=== PATIENT | female | born 1965 | race African-American/Black ===

== ENCOUNTER 2018-11-25 11:25 | Inpatient (IN) | payer MEDICAID, OTHER ==
[~2018-11-25] VITALS: Ht 170.2 cm; Wt 65.8 kg
[2018-11-25] MEDS ORDERED: LORAZEPAM 2MG/ML CPJ IV ONE ×2 (11:45→16:15)
[2018-11-25] MEDS ORDERED: CLONIDINE 0.2MG TABLET PO ONE (11:45)
[2018-11-25 12:09] LABS: BASOPHILS % 0.7 % (0.0-2.0); EOSINOPHILS % 0.1 % (0.0-5.0); HEMATOCRIT. 52.7 % (36.0-48.0); HEMOGLOBIN. 17.5 g/dL (12.0-16.0); LYMPHOCYTES % 29.5 % (20.0-50.0); MEAN CORPUSCULAR HEMOGLOBIN 25.1 pg (28.0-32.0); MEAN CORPUSCULAR VOLUME 75.9 fL (81.0-99.0); MEAN PLATELET VOLUME 9.6 fl (7.4-10.4); NEUTROPHILS % 55.7 % (40.0-76.0); PLATELET 237 x1000/uL (130-400); RED BLOOD CELL COUNT 6.95 mill/uL (4.2-5.4); RED CELL DISTRIBUTION WIDTH 15.6 % (11.6-14.6)
[2018-11-25 12:16] LABS: CHLORIDE 96 mEq/L (98-107)
[2018-11-25] MEDS ORDERED: ASPIRIN 81MG TABLET PO ONE (12:45)
[2018-11-25] MEDS ORDERED: HYDRALAZINE 20MG/ML VIAL IV ONE ×2 (12:45→14:00)
[2018-11-25] MEDS ORDERED: ONDANSETRON HCL 4MG/2ML INJ IV ONE (12:45)
[2018-11-25] MEDS ORDERED: ONDANSETRON HCL 4MG/2ML INJ IV PRN (14:30)
[2018-11-25] MEDS ORDERED: MAGNESIUM/ALUMINUM HYDROXIDE/SIMETHICONE 30ML UDC PO PRN (14:30)
[2018-11-25] MEDS ORDERED: GUAIFENESIN 200MG/10ML SUGAR FREE UDC PO PRN (14:30)
[2018-11-25] MEDS ORDERED: ACETAMINOPHEN 650MG SUPP PR PRN (14:30)
[2018-11-25] MEDS ORDERED: DEXTROSE 50% WATER 50ML SYRINGE IV PRN (14:30)
[2018-11-25] MEDS ORDERED: ACETAMINOPHEN 650MG/20.3ML UDC GT PRN (14:30)
[2018-11-25] MEDS ORDERED: MORPHINE SULFATE 4 MG/ML CPJ (NOT FOR IM USE) IV ONE (14:30)
[2018-11-25] MEDS ORDERED: IPRATROPIUM/ALBUTEROL 0.5-3(2.5)MG/3ML NEB INH PRN (14:30)
[2018-11-25] MEDS ORDERED: DOCUSATE SODIUM 100MG CAPSULE PO PRN (14:30)
[2018-11-25] MEDS ORDERED: CLONIDINE 0.1MG TABLET PO PRN (14:30)
[2018-11-25] MEDS ORDERED: IOHEXOL-350 100 ML BOTTLE ONE (15:25)
[2018-11-25] MEDS ORDERED: HYDRALAZINE 20MG/ML VIAL IV PRN (15:30)
[2018-11-25] MEDS ORDERED: CLONIDINE 0.2MG TABLET PO PRN (16:31)
[2018-11-25] MEDS ORDERED: HYDROCODONE/ACETAMINOPHEN 5/325MG TABLET PO PRN (17:00)
[2018-11-25] MEDS ORDERED: FUROSEMIDE 40MG/4ML VIAL IVP NR (18:45)
[2018-11-25] MEDS ORDERED: NA PHOS,M-B/NA PHOS,DI-BA ENEMA 118ML PR PRN (21:00)
[2018-11-25] MEDS: LORAZEPAM 1MG TABLET PO PRN (21:29)
[2018-11-25 23:30] VITALS: BP 168/112
[2018-11-26] MEDS: BENAZEPRIL 10MG TABLET PO SCH ×2 (00:50→08:18)
[2018-11-26] MEDS: AMLODIPINE 10MG TABLET PO SCH ×2 (00:50→08:18)
[2018-11-26] MEDS: DIPHENHYDRAMINE 50MG/ML VIAL IV PRN ×2 (00:52→20:44)
[2018-11-26] MEDS: BLOOD SUGAR DIAGNOSTIC STRIP TEST SCH ×5 (00:55→21:00)
[2018-11-26] MEDS: LORAZEPAM 1MG TABLET PO PRN (03:24)
[2018-11-26 04:00] VITALS: BP 121/79
[2018-11-26 04:20] LABS: CLARITY URINE CLEAR (CLEAR); COLOR URINE YELLOW (YELLOW); KETONES URINE NEGATIVE (NEGATIVE); LEUKOCYTE ESTERASE URINE NEGATIVE (NEGATIVE); NITRITE URINE NEGATIVE (NEGATIVE); OCCULT BLOOD URINE TRACE (NEGATIVE); PROTEIN URINE 1+ (NEGATIVE); SPECIFIC GRAVITY URINE 1.022 (1.005-1.030); UROBILINOGEN URINE 0.2 E.U./dL (0.2-1.0)
[2018-11-26] MEDS ORDERED: ALPR2TAB2 PO (04:27)
[2018-11-26 04:29] LABS: *BARBITURATES SCREEN URINE NEGATIVE (NEGATIVE); *BENZODIAZEPINES SCREEN URINE NEGATIVE (NEGATIVE); *COCAINE SCREEN URINE PRESUMTIVE POSITIVE (NEGATIVE)
[2018-11-26 04:30] LABS: *AMPHETAMINES SCREEN URINE PRESUMTIVE POSITIVE (NEGATIVE); CANNABINOID URINE SCREEN PRESUMTIVE POSITIVE (NEGATIVE); METHADONE URINE SCREEN NEGATIVE (NEGATIVE); OPIATES URINE SCREEN PRESUMTIVE POSITIVE (NEGATIVE); PHENCYCLIDINE URINE SCREEN NEGATIVE (NEGATIVE)
[2018-11-26] MEDS: SODIUM CHLORIDE 0.9% INJ 3ML FLUSH IVF SCH ×2 (05:29→14:00)
[2018-11-26 07:43] LABS: CHLORIDE 93 mEq/L (98-107)
[2018-11-26 07:51] LABS: CREATINE KINASE 947 IU/L (26-192); CREATINE KINASE MB FRACTION 4.3 ng/mL (0.5-3.6); LDL CHOLESTEROL 104 mg/dL (5-100)
[2018-11-26 07:52] LABS: HDL CHOLESTEROL 98 mg/dL (40-59)
[2018-11-26 08:00] VITALS: BP_SYST 107; BP_DIAS 70; BP_DIAS 71
[2018-11-26] MEDS: INSULIN LISPRO 100 UNITS/ML SUBCUT SCH ×5 (08:01→21:00)
[2018-11-26] MEDS ORDERED: ALPRAZOLAM 0.5 MG TABLET PO NR ×2 (08:08→09:00)
[2018-11-26] MEDS ORDERED: LORAZEPAM 1MG TABLET PO PRN (08:15)
[2018-11-26 08:29] LABS: BASOPHILS % 0.4 % (0.0-2.0); EOSINOPHILS % 0.3 % (0.0-5.0); HEMATOCRIT. 49.9 % (36.0-48.0); HEMOGLOBIN. 15.9 g/dL (12.0-16.0); LYMPHOCYTES % 37.9 % (20.0-50.0); MEAN CORPUSCULAR HEMOGLOBIN 24.5 pg (28.0-32.0); MEAN CORPUSCULAR VOLUME 76.7 fL (81.0-99.0); MONOCYTES % 13.5 % (2.0-8.0); NEUTROPHILS % 47.9 % (40.0-76.0); RED BLOOD CELL COUNT 6.51 mill/uL (4.2-5.4); RED CELL DISTRIBUTION WIDTH 15.3 % (11.6-14.6)
[2018-11-26] MEDS: ENOXAPARIN 40MG/0.4ML SYR SUBCUT SCH (08:40)
[2018-11-26] MEDS ORDERED: NICOTINE 21MG PATCH TD SCH (09:00)
[2018-11-26] MEDS: NICOTINE 14MG PATCH TD SCH (09:06)
[2018-11-26 12:00] VITALS: BP 138/75
[2018-11-26 14:11] LABS: PLATELET 159 x1000/uL (130-400)
[2018-11-26 14:13] LABS: PLATELET ESTIMATE NORMAL
[2018-11-26 16:00] VITALS: BP 111/63
[2018-11-26] MEDS ORDERED: POTASSIUM CHLORIDE 20MEQ/PACKET PO NR (16:45)
[2018-11-26] MEDS ORDERED: REGADENOSON 0.4 MG/5 ML IV NR (17:00)
[2018-11-26 17:52] LABS: T4 FREE 1.14 ng/dL (0.76-1.46)
[2018-11-26] MEDS: SODIUM CHLORIDE 0.45% 1,000 ML IV SCH (17:53)
[2018-11-26] MEDS: ALPRAZOLAM 0.5 MG TABLET PO PRN (20:08)
[2018-11-26] MEDS ORDERED: ALPRAZOLAM 0.5 MG TABLET PO SCH (21:00)
[2018-11-26] MEDS ORDERED: MEDICATION NOT ON FORMULARY EA (Alprazolam (Xanax) 2 MG) PO SCH (21:00)
[2018-11-27 00:19] VITALS: BP 97/61
[2018-11-27 04:00] VITALS: BP 95/63
[2018-11-27] MEDS: INSULIN LISPRO 100 UNITS/ML SUBCUT SCH ×4 (05:33→21:00)
[2018-11-27] MEDS: BLOOD SUGAR DIAGNOSTIC STRIP TEST SCH ×4 (05:33→21:50)
[2018-11-27 07:14] LABS: HEMATOCRIT. 42.8 % (36.0-48.0); HEMOGLOBIN. 13.6 g/dL (12.0-16.0); MEAN CORPUSCULAR HEMOGLOBIN 24.5 pg (28.0-32.0); MEAN CORPUSCULAR VOLUME 76.8 fL (81.0-99.0); MEAN PLATELET VOLUME 9.7 fl (7.4-10.4); PLATELET 113 x1000/uL (130-400); RED BLOOD CELL COUNT 5.57 mill/uL (4.2-5.4); RED CELL DISTRIBUTION WIDTH 15.1 % (11.6-14.6)
[2018-11-27 07:48] LABS: CHLORIDE 97 mEq/L (98-107)
[2018-11-27 08:00] VITALS: BP_SYST 107; BP_SYST 114; BP_DIAS 48; BP_DIAS 78
[2018-11-27 08:08] LABS: CREATINE KINASE 723 IU/L (26-192)
[2018-11-27 08:10] LABS: CREATINE KINASE MB FRACTION 2.5 ng/mL (0.5-3.6)
[2018-11-27] MEDS ORDERED: REGADENOSON 0.4 MG/5 ML IV ONE (08:47)
[2018-11-27] MEDS: ENOXAPARIN 40MG/0.4ML SYR SUBCUT SCH (10:11)
[2018-11-27] MEDS: AMLODIPINE 10MG TABLET PO SCH (10:12)
[2018-11-27] MEDS: NICOTINE 14MG PATCH TD SCH (10:19)
[2018-11-27] MEDS: SODIUM CHLORIDE 0.9% INJ 3ML FLUSH IVF SCH ×2 (10:20→15:24)
[2018-11-27] MEDS: SODIUM CHLORIDE 0.45% 1,000 ML IV SCH (10:20)
[2018-11-27 12:00] VITALS: BP 108/72
[2018-11-27 13:06] LABS: PLATELET ESTIMATE DECREASED
[2018-11-27] MEDS: ALPRAZOLAM 0.5 MG TABLET PO PRN (15:24)
[2018-11-27 16:00] VITALS: BP 107/76
[2018-11-27] MEDS: SODIUM CHLORIDE 0.9% 1,000 ML IV SCH (19:22)
[2018-11-27 20:00] VITALS: BP 128/86
[2018-11-27] MEDS: DIPHENHYDRAMINE 50MG/ML VIAL IV PRN (21:20)
[2018-11-28] VITALS: BP 110/61
[2018-11-28 04:00] VITALS: BP 133/87
[2018-11-28] MEDS: BLOOD SUGAR DIAGNOSTIC STRIP TEST SCH ×2 (05:30→12:40)
[2018-11-28] MEDS: SODIUM CHLORIDE 0.9% 1,000 ML IV SCH (05:39)
[2018-11-28 06:28] LABS: HEMATOCRIT. 45.1 % (36.0-48.0); HEMOGLOBIN. 14.2 g/dL (12.0-16.0); MEAN CORPUSCULAR HEMOGLOBIN 24.5 pg (28.0-32.0); MEAN CORPUSCULAR VOLUME 77.7 fL (81.0-99.0); MEAN PLATELET VOLUME 9.6 fl (7.4-10.4); PLATELET 110 x1000/uL (130-400); RED CELL DISTRIBUTION WIDTH 14.6 % (11.6-14.6)
[2018-11-28 07:50] LABS: PHOSPHORUS 2.8 mg/dL (2.5-4.9)
[2018-11-28 08:00] VITALS: BP 111/58
[2018-11-28] MEDS: INSULIN LISPRO 100 UNITS/ML SUBCUT SCH ×2 (08:10→13:10)
[2018-11-28 08:39] LABS: HEMATOCRIT. 41.6 % (36.0-48.0); HEMOGLOBIN. 13.2 g/dL (12.0-16.0); MEAN CORPUSCULAR HEMOGLOBIN 24.5 pg (28.0-32.0); MEAN CORPUSCULAR VOLUME 77.3 fL (81.0-99.0); MEAN PLATELET VOLUME 9.3 fl (7.4-10.4); PLATELET 101 x1000/uL (130-400); RED BLOOD CELL COUNT 5.39 mill/uL (4.2-5.4); RED CELL DISTRIBUTION WIDTH 14.7 % (11.6-14.6)
[2018-11-28 08:42] LABS: CHLORIDE 106 mEq/L (98-107)
[2018-11-28] MEDS: NICOTINE 14MG PATCH TD SCH (08:44)
[2018-11-28] MEDS: ENOXAPARIN 40MG/0.4ML SYR SUBCUT SCH (08:45)
[2018-11-28] MEDS: AMLODIPINE 10MG TABLET PO SCH (08:45)
[2018-11-28 11:03] LABS: PLATELET ESTIMATE DECREASED
[2018-11-28 12:00] VITALS: BP 126/86
[2018-11-28 12:19] LABS: PLATELET ESTIMATE SLIGHTLY DECREASED
[2018-11-28] MEDS ORDERED: AMLO10TA80 PO (14:11)
[2018-11-28 15:28] VITALS: BP 126/86
== END 2018-11-28 18:42 | disposition home or self-care (01) | DRG 243 ==
LOC: ER 11:25 → 7WST 13:57 → EDBEDREQTM 20:42 → EDBEDREQSVC 20:42 → ENRESERV 21:23 → 7WST 11-26 02:30
PROVIDERS: ADMIT Family Medicine; ATTEND Family Medicine
DX: K21.9 Gastro-esophageal reflux disease without esophagitis (principal); N17.9 Acute kidney failure, unspecified; E44.0 Moderate protein-calorie malnutrition; D69.6 Thrombocytopenia, unspecified; I16.1 Hypertensive emergency; D75.1 Secondary polycythemia; F10.10 Alcohol abuse, uncomplicated; F19.10 Other psychoactive substance abuse, uncomplicated; E04.1 Nontoxic single thyroid nodule; F15.129 Other stimulant abuse with intoxication, unspecified; R74.0 Nonspecific elevation of levels of transaminase and lactic acid dehydrogenase [LDH]; F12.90 Cannabis use, unspecified, uncomplicated; F17.210 Nicotine dependence, cigarettes, uncomplicated; F41.0 Panic disorder [episodic paroxysmal anxiety]; I10 Essential (primary) hypertension; Z82.49 Family history of ischemic heart disease and other diseases of the circulatory system; Z79.899 Other long term (current) drug therapy; Z68.22 Body mass index [BMI] 22.0-22.9, adult; N14.1 Nephropathy induced by other drugs, medicaments and biological substances; T50.8X5A Adverse effect of diagnostic agents, initial encounter
CPT/HCPCS: 36415; 71045; 71275; 74018; 76700; 78452; 80048; 80061; 80305; 82550; 82553; 82962; 83036; 83735; 83880; 84100; 84439; 84443; 84481; 84484; 85379; 93005; 93017; 93306; 93970; 96374; 96375; 96376; 99291; A9500; J0360; J1200; J1650; J1940; J2060; J2270; J2405; J2785; J7030; J7620; Q9967; A4315